=== PATIENT | female | born 1995 | race Two or more races ===

== ENCOUNTER 2021-02-18 11:51 | Emergency (ER) | payer OTHER ==
[2021-02-18 12:07] VITALS: BP 102/68; PULSE 97; TEMP 98; BMI 27.6
[2021-02-18 13:03] LABS: EPI CELLS 30 /uL (0-25.1); HYALINE CASTS 0 /uL (0-3.1); URINE APPEARANCE CLEAR; URINE BACTERIA 503 /uL (0-1359); URINE BILIRUBIN NEGATIVE (NEGATIVE); URINE COLOR YELLOW; URINE GLUCOSE (UA) NEGATIVE (NEGATIVE); URINE KETONE NEGATIVE (NEGATIVE); URINE LEUK ESTERASE TRACE (NEGATIVE); URINE NITRITE NEGATIVE (NEGATIVE); URINE PROTEIN NEGATIVE (NEGATIVE); URINE RBC 1 /uL (0-23.9); URINE UROBILINOGEN 0.2 mg/dL (0.2-1.0); URINE WBC 30 /uL (0-25.8)
== END 2021-02-18 15:06 | disposition home or self-care (01) ==
LOC: JER 11:51
DX: O28.9 Unspecified abnormal findings on antenatal screening of mother (principal)
CPT/HCPCS: 36415; 76817-TC; 81003; 84702; 87086; 99284-25